=== PATIENT | female | born 1995 | race Caucasian/White ===

== ENCOUNTER 2017-05-13 14:48 | Emergency (ER) | payer OTHER ==
[~2017-05-13] VITALS: Ht 182.9 cm; Wt 77.6 kg
[2017-05-13 15:36] VITALS: TEMP 36.8; Ht 182.9 cm; Wt 77.6 kg
[2017-05-13] MEDS ORDERED: DiphenhydrAMINE HCL 50 MG/ML VIAL IV STA (17:14)
[2017-05-13] MEDS ORDERED: KETOROLAC TROMETHAMINE 30 MG/ML VIAL IV STA (17:14)
[2017-05-13] MEDS ORDERED: PROCHLORPERAZINE 5 MG/ML 2 ML VIAL IV STA (17:14)
[2017-05-13] MEDS ORDERED: SODIUM CHLORIDE 0.9% 1000ML 1,000 ML IV STA (17:14)
--- NOTE | 2017-05-13 17:17 | EMERGENCY ROOM VISIT NOTE ---
History Report prepared by Hussain: Itzel Hess Under the Supervision of: Dr. Manuel Liz M.D. First contact with patient: 17:09 Chief Complaint: HEADACHE Stated Complaint: MIGRAINE, NECK PAIN, LOSS OF SIGHT History of Present Illness The patient is a 21 year old female who presents to the Emergency Room with complaints of a worsening headache that began at 9:30pm last night. The patient states that the headache was an sudden onset. She notes that the pain has migrated down her neck. She states that moving her neck side to side worsens the pain. She is also experiencing black dots in her vision. The patient in June 2016 has a brain bleed and she states that the headache at that time is similar to what she is experiencing now. She was treated at [facility] in [place]. The patient denies abdominal pain. She takes Prednisone for her Lupus. Source of History: patient Onset: 9:30pm last night Position: head Quality: other (headache) Timing: worsening Modifying Factors (Worsening): other (turning head side to side) Associated Symptoms: + neck pain, No abdominal pain Note: The patient is experiencing black dots in her vision. Review of Systems See HPI for pertinent positives & negatives. A total of 10 systems reviewed and were otherwise negative. Past Medical & Surgical Medical Problems: (1) Lupus Family History Patient reports no known family medical history. Social History Smoking Status: Current Every Day Smoker Smokeless Tobacco Use: No Marital Status: Housing Status: lives with family Current/Historical Medications Scheduled Prednisone Tab (Prednisone), 10 MG PO DAILY Allergies Coded Allergies: Sumatriptan (Unverified Allergy, Severe, CAUSED BRAIN BLEED, 05/13/17) Physical Exam Vital Signs Date Time Temp Pulse Resp B/P (MAP) Pulse Ox O2 Delivery O2 Flow Rate FiO2 05/13/17 19:10 47 18 102/66 99 05/13/17 18:29 45 16 104/60 99 Room Air 05/13/17 17:53 64 05/13/17 17:40 48 17 112/63 97 Room Air 05/13/17 15:36 36.8 72 20 118/76 100 Room Air Physical Exam GENERAL: Patient is a healthy-appearing well-nourished female HEAD: Normocephalic atraumatic. No evidence of meningitis or cephalitis on exam. EYES: Ocular movements intact pupils equal and react to light OROPHARYNX mucous membranes are moist no exudates present no erythema or edema present NECK: Supple no nuchal rigidity CHEST: Good equal expansion LUNGS: Clear and equal to auscultation CARDIAC: Normal S1 and S2 ABDOMEN: Soft nontender no guarding BACK: No CVA tenderness EXTREMITIES: No pain upon palpation normal muscle strength in all groups no clubbing cyanosis or edema NEURO: Patient is following commands and answering questions appropriately. Alert and oriented x3 Cranial Nerves 2-12 grossly intact Medical Decision & Procedures ER Provider Diagnostic Interpretation: CT results as stated below per my review and radiologist interpretation: HEAD CTA HISTORY: Headache mental status change TECHNIQUE: Multiaxial CT images of the head were performed both before and after the intravenous administration of contrast to evaluate the major cerebral vessels. Maximum intensity projection images were also obtained. COMPARISON: None. FINDINGS: There is no mass, hematoma, midline shift, or acute infarct. Visualized intracranial internal carotid arteries, distal vertebral arteries, and basilar artery are widely patent. There is no significant stenosis, occlusion, or aneurysm seen within the bilateral ACAs, MCAs, or therapeutic recreation specialist. IMPRESSION: No significant stenosis, occlusion, or aneurysm within the [place]. Negative unenhanced CT scan of the brain Electronically signed by: Jony Aponte M.D. 05/13/2017 6:25 PM Dictated Date/Time: 05/13/2017 6:23 PM Laboratory Results 05/13/17 17:30 Red Blood Count 4.55, Mean Corpuscular Volume 81.1, Mean Corpuscular Hemoglobin 27.7, Mean Corpuscular Hemoglobin Concent 34.1, Mean Platelet Volume 8.8, Neutrophils (%) (Auto) 80.7, Lymphocytes (%) (Auto) 16.1, Monocytes (%) (Auto) 2.6, Eosinophils (%) (Auto) 0.2, Basophils (%) (Auto) 0.2, Neutrophils # (Auto) 4.71, Lymphocytes # (Auto) 0.94, Monocytes # (Auto) 0.15, Eosinophils # (Auto) 0.01, Basophils # (Auto) 0.01 05/13/17 17:30 Test 05/13/17 17:30 05/13/17 17:41 White Blood Count 5.83 K/uL (4.8-10.8) Red Blood Count 4.55 M/uL (4.2-5.4) Hemoglobin 12.6 g/dL (12.0-16.0) Hematocrit 36.9 % (37-47) Mean Corpuscular Volume 81.1 fL (80-100) Mean Corpuscular Hemoglobin 27.7 pg (25-34) Mean Corpuscular Hemoglobin Concent 34.1 g/dl (32-36) Platelet Count 279 K/uL (130-400) Mean Platelet Volume 8.8 fL (7.4-10.4) Neutrophils (%) (Auto) 80.7 % Lymphocytes (%) (Auto) 16.1 % Monocytes (%) (Auto) 2.6 % Eosinophils (%) (Auto) 0.2 % Basophils (%) (Auto) 0.2 % Neutrophils # (Auto) 4.71 K/uL (1.4-6.5) Lymphocytes # (Auto) 0.94 K/uL (1.2-3.4) Monocytes # (Auto) 0.15 K/uL (0.11-0.59) Eosinophils # (Auto) 0.01 K/uL (0-0.5) Basophils # (Auto) 0.01 K/uL (0-0.2) RDW Standard Deviation 43.7 fL (36.4-46.3) RDW Coefficient of Variation 14.7 % (11.5-14.5) Immature Granulocyte % (Auto) 0.2 % Immature Granulocyte # (Auto) 0.01 K/uL (0.00-0.02) Urine Color YELLOW Urine Appearance CLOUDY (CLEAR) Urine pH 7.5 (4.5-7.5) Urine Specific [place] 1.026 (1.000-1.030) Urine Protein NEG (NEG) Urine Glucose (UA) NEG (NEG) Urine Ketones TRACE (NEG) Urine Occult Blood NEG (NEG) Urine Nitrite NEG (NEG) Urine Bilirubin NEG (NEG) Urine Urobilinogen NEG (NEG) Urine Leukocyte Esterase SMALL (NEG) Urine WBC (Auto) >30 /hpf (0-5) Urine RBC (Auto) 0-4 /hpf (0-4) Urine Hyaline Casts (Auto) 10-30 /lpf (0-5) Urine Epithelial Cells (Auto) >30 /lpf (0-5) Urine Bacteria (Auto) 2+ (NEG) Urine Test NEG (NEG) Est Creatinine Clear Calc Drug Dose 165.7 ml/min Estimated GFR () 149.4 Estimated GFR (Non- 128.9 BUN/Creatinine Ratio 17.4 (10-20) Calcium Level 9.0 mg/dl (8.5-10.1) Total Bilirubin 0.2 mg/dl (0.2-1) Direct Bilirubin < 0.1 mg/dl (0-0.2) Aspartate Amino Transf (AST/SGOT) 12 U/L (15-37) Alanine Aminotransferase (ALT/SGPT) 13 U/L (12-78) Alkaline Phosphatase 57 U/L (45-117) Total Protein 8.3 gm/dl (6.4-8.2) Albumin 3.5 gm/dl (3.4-5.0) Lipase 101 U/L (73-393) Bedside Hemoglobin 13.6 g/dl (12.0-16.0) Bedside Hematocrit 40 % (37-47) Bedside Sodium 141 mEq/L (135-144) Bedside Potassium 3.8 mEq/L (3.3-5.0) Bedside Chloride 101 mEq/L (101-112) Bedside Total CO2 26 mEq/l (24-31) Anion Gap 20.0 mmol/L (16-25) Bedside Blood Urea Nitrogen 10 mg/dl (7-18) Bedside Creatinine 0.6 mg/dl (0.6-1.3) Bedside Glucose (other) 104 mg/dl (70-99) Bedside Ionized Calcium (Maximiliano) 1.19 mmol/l (1.12-1.32) Labs reviewed by ED physician. Medications Administered Medications (Trade) Dose Ordered Sig/Mary Route Start Time Stop Time Status Last Admin Dose Admin Sodium Chloride 1,000 ml @ 999 mls/hr Q1H1M STAT IV 05/13/17 17:14 05/13/17 18:14 DC 05/13/17 17:33 999 MLS/HR Ketorolac Tromethamine (Toradol Inj) 30 mg NOW STAT IV 05/13/17 17:14 05/13/17 17:16 DC 05/13/17 17:37 30 MG Diphenhydramine HCl (Benadryl Inj) 50 mg NOW STAT IV 05/13/17 17:14 05/13/17 17:16 DC 05/13/17 17:38 50 MG Prochlorperazine Edisylate (Compazine Inj) 10 mg NOW STAT IV 05/13/17 17:14 05/13/17 17:16 DC 05/13/17 17:39 10 MG Dexamethasone Sodium Phosphate (Decadron Inj) 10 mg NOW STAT IV 05/13/17 18:55 05/13/17 18:56 DC 05/13/17 18:58 10 MG ED Course 1710: Past medical records reviewed. The patient was evaluated in room A10. A complete history and physical examination was performed. 171: Compazine Inj 10 mg IV, Benadryl Inj 50 mg IV, Toradol Inj 30 mg IV, Sodium Chloride 1,000 ml @ 999 mls/hr IV. 1854: Decadron Inj 10 mg IV. 1856: Upon reexamination the patient is hemodynamically stable. I discussed results and treatment plan with the patient. She verbalizes agreement and understanding. The patient is ready for discharge. Medical Decision Differential diagnosis: Etiologies such as migraine headache, meningitis, sinusitis, CO exposure, ICH, SAH, infection, tumor, headache, sinus thrombosis, arterial dissection, as well as others were entertained. Medication Reconciliation: I attest that I have personally reviewed the patient' s current medication list. Blood Pressure Screening: Patient was found to have normal blood pressure on screening and does not require follow up. This is a 21-year-old female who presents emergency department complaining of migraine headache. The patient has a history of migraines in the past. She has no evidence of meningitis encephalitis on examination. The patient also has a history of a brain bleed therefore she was sent for a CTA of her head. This did not show any acute process. In addition the patient has a normal CBC. An IV was established, patient given normal saline saline bolus, Toradol, Compazine, Benadryl, Decadron. Repeat examination revealed much improvement the patient's symptoms. I do believe that the patient can be safely discharged home for follow-up with neurology. Patient was in agreement with the treatment plan. Impression Primary Impression: Headache Scribe Attestation The scribe's documentation has been prepared under my direction and personally reviewed by me in its entirety. I confirm that the note above accurately reflects all work, treatment, procedures, and medical decision making performed by me. Departure Information Dispostion Home / Self-Care Referrals No Doctor, Assigned (PCP) Forms HOME CARE DOCUMENTATION FORM, IMPORTANT VISIT INFORMATION, School Instructions, Work Instructions Patient Instructions Headaches Migraine and Tension, My [facility] Additional Instructions Follow up with DR Capone's office You have been examined and treated today on an emergency basis only. This is not a substitute for, or an effort to provide, complete comprehensive medical care. It is impossible to recognize and treat all injuries or illnesses in a single emergency department visit. It is therefore important that you follow up closely with your PCP. Call as soon as possible for an appointment. Thank you for your time and consideration. I look forward to speaking with you again soon. Please don't hesitate to call us if you have any questions. Problem Qualifiers Primary Impression: Headache Headache type: unspecified Headache chronicity pattern: unspecified pattern Intractability: not intractable Qualified Codes: R51 - Headache
[2017-05-13] MEDS ORDERED: OPTIRAY 320 IV PRN (17:30)
[2017-05-13 17:44] LABS: BASO % 0.2 %; BASO ABS # 0.01 K/uL (0-0.2); COMPLETE YES; EOS % 0.2 %; HEMATOCRIT 36.9 % (37-47); IG% 0.2 %; LYMPH % 16.1 %; LYMPH ABS # 0.94 K/uL (1.2-3.4); MEAN CELL VOLUME 81.1 fL (80-100); MEAN CORPUSCULAR HEMOGLOBIN 27.7 pg (25-34); MEAN CORPUSCULAR HGB CONC 34.1 g/dl (32-36); MEAN PLATELET VOLUME 8.8 fL (7.4-10.4); MONO % 2.6 %; NEUT % 80.7 %; PLATELET COUNT 279 K/uL (130-400); RED BLOOD COUNT 4.55 M/uL (4.2-5.4); WHITE BLOOD COUNT 5.83 K/uL (4.8-10.8)
[2017-05-13 17:53] LABS: ISTAT CREATININE 0.6 mg/dl (0.6-1.3); ISTAT HEMOGLOBIN 13.6 g/dl (12.0-16.0); ISTAT IONIZED CALCIUM 1.19 mmol/l (1.12-1.32)
[2017-05-13 18:06] LABS: URINE APPEARANCE CLOUDY (CLEAR); URINE BILIRUBIN NEG (NEG); URINE COLOR YELLOW; URINE EPITHELIAL CELL AUTO >30 /lpf (0-5); URINE NITRITE NEG (NEG); URINE PH 7.5 (4.5-7.5); URINE SPECIFIC GRAVITY 1.026 (1.000-1.030); UROBILINOGEN NEG (NEG)
[2017-05-13 18:13] LABS: ALT/SGPT 13 U/L (12-78); AST/SGOT 12 U/L (15-37); BLOOD UREA NITROGEN 11 mg/dl (7-18); BUN/CREATININE RATIO 17.4 (10-20); CARBON DIOXIDE 25 mmol/L (21-32); CHLORIDE 105 mmol/L (98-107); CREATININE 0.62 mg/dl (0.60-1.20); GLUCOSE 100 mg/dl (70-99); POTASSIUM 3.8 mmol/L (3.5-5.1); SODIUM 139 mmol/L (136-145)
[2017-05-13 18:14] LABS: MANUAL MICROSCOPIC REQUIRED? NO; REVIEW REQ? NO
[2017-05-13 18:15] LABS: ALKALINE PHOSPHATASE 57 U/L (45-117)
--- NOTE | 2017-05-13 18:26 | DIAGNOSTIC IMAGING REPORT ---
HEAD CTA HISTORY: Headache mental status change TECHNIQUE: Multiaxial CT images of the head were performed both before and after the intravenous administration of contrast to evaluate the major cerebral vessels. Maximum intensity projection images were also obtained. COMPARISON: None. FINDINGS: There is no mass, hematoma, midline shift, or acute infarct. Visualized intracranial internal carotid arteries, distal vertebral arteries, and basilar artery are widely patent. There is no significant stenosis, occlusion, or aneurysm seen within the bilateral ACAs, MCAs, or screen printing press operator. IMPRESSION: No significant stenosis, occlusion, or aneurysm within the [place] of [place]. Negative unenhanced CT scan of the brain Electronically signed by: Jony Aponte M.D. 05/13/2017 6:25 PM Dictated Date/Time: 05/13/2017 6:23 PM
[2017-05-13] MEDS ORDERED: DEXAMETHASONE SOD INJ 10 MG/ML VIAL IV STA (18:55)
[2017-05-13 19:10] VITALS: BP 102/66; PULSE 47; O2SAT 99
== END 2017-05-13 19:10 | disposition home or self-care (01) ==
LOC: C.EDB 14:50 → C.EDA 19:10
DX: R51 Headache (principal); L93.0 Discoid lupus erythematosus; F17.200 Nicotine dependence, unspecified, uncomplicated; Z79.52 Long term (current) use of systemic steroids

== ENCOUNTER 2017-05-25 14:19 | Emergency (ER) | payer OTHER ==
[~2017-05-25] VITALS: Ht 182.9 cm; Wt 76.9 kg
[2017-05-25 14:35] VITALS: TEMP 36.7; Ht 182.9 cm; Wt 76.9 kg
[2017-05-25] MEDS ORDERED: SODIUM CHLORIDE 0.9% 1000ML 1,000 ML IV STA (15:17)
[2017-05-25] MEDS ORDERED: DiphenhydrAMINE HCL 50 MG/ML VIAL IV STA (15:17)
[2017-05-25] MEDS ORDERED: PROCHLORPERAZINE 5 MG/ML 2 ML VIAL IV STA (15:17)
[2017-05-25] MEDS ORDERED: MAGNESIUM SULFATE 1GM / D5W 1 GM BAG IV STA (15:17)
[2017-05-25] MEDS ORDERED: KETOROLAC TROMETHAMINE 30 MG/ML VIAL IV STA (15:17)
--- NOTE | 2017-05-25 15:21 | EMERGENCY ROOM VISIT NOTE ---
History Report prepared by Hussain: Sulaiman Jhaveri Under the Supervision of: Dr. Manuel Liz M.D. First contact with patient: 15:13 Chief Complaint: HEADACHE Stated Complaint: SEVERE MIGRAINE, LOSS OF SIGHT IN LEFT EYE History of Present Illness The patient is a 21 year old female with a history of headaches who presents to the Emergency Room with complaints of persistent headache that started around 0700 this morning. She has also had a loss of vision in her left eye accompanied with the headache. The patient states that everything looks extremely blurry in her left eye, and she cannot see if she closes her right eye. She describes it as if she was "staring at the sun for too long". The patient says that she has had vision difficulties in her left eye before, but she would still be able to see during those episodes. The patient describes those episodes as if she had spots in her vision. She has seen her family doctor for her headaches, and was given Triptan, which has not been helping. The patient has not called a neurologist yet. Source of History: patient Onset: Around 0700 this morning Position: head Quality: other (headache - migraine) Timing: other (persistent) Note: Associated symptoms: Loss of vision in left eye. Review of Systems See HPI for pertinent positives & negatives. A total of 10 systems reviewed and were otherwise negative. Past Medical & Surgical Medical Problems: (1) Lupus Family History Patient reports no known family medical history. Social History Smoking Status: Current Every Day Smoker Marital Status: Housing Status: lives with family Current/Historical Medications Scheduled Acetaminophen (Tylenol), 1,300 MG PO PRN UD Amitriptyline Hcl (Elavil), 10 MG PO HS Prednisone Tab (Prednisone), 10 MG PO TAPER UD Allergies Coded Allergies: Sumatriptan (Unverified Allergy, Severe, CAUSED BRAIN BLEED, 05/13/17) Physical Exam Vital Signs Date Time Temp Pulse Resp B/P (MAP) Pulse Ox O2 Delivery O2 Flow Rate FiO2 05/25/17 16:41 87 20 110/80 99 05/25/17 14:35 36.7 80 20 105/68 94 Room Air Physical Exam GENERAL: Patient is a healthy-appearing well-nourished [] HEAD: Normocephalic atraumatic EYES: Ocular movements intact pupils equal and react to light OROPHARYNX mucous membranes are moist no exudates present no erythema or edema present NECK: Supple no nuchal rigidity CHEST: Good equal expansion LUNGS: Clear and equal to auscultation CARDIAC: Normal S1 and S2 ABDOMEN: Soft nontender no guarding BACK: No CVA tenderness EXTREMITIES: No pain upon palpation normal muscle strength in all groups no clubbing cyanosis or edema NEURO: Patient is following commands and answering questions appropriately. Alert and oriented x3 Cranial Nerves 2-12 grossly intact. No evidence of meningitis or encephalitis on exam. Medical Decision & Procedures Medications Administered Medications (Trade) Dose Ordered Sig/Mary Route Start Time Stop Time Status Last Admin Dose Admin Ketorolac Tromethamine (Toradol Inj) 30 mg NOW STAT IV 05/25/17 15:17 05/25/17 15:19 DC 05/25/17 15:39 30 MG Prochlorperazine Edisylate (Compazine Inj) 10 mg NOW STAT IV 05/25/17 15:17 05/25/17 15:19 DC 05/25/17 15:40 10 MG Diphenhydramine HCl (Benadryl Inj) 50 mg NOW STAT IV 05/25/17 15:17 05/25/17 15:19 DC 05/25/17 15:38 50 MG Sodium Chloride 1,000 ml @ 999 mls/hr Q1H1M STAT IV 05/25/17 15:17 05/25/17 16:17 DC 05/25/17 15:35 999 MLS/HR Dexamethasone Sodium Phosphate (Decadron Inj) 10 mg NOW ONCE IV 05/25/17 15:30 05/25/17 15:31 DC 05/25/17 15:44 10 MG Magnesium Sulfate (Magnesium Sulfate) 1 gm NOW STAT IV 05/25/17 15:17 05/25/17 15:19 DC 05/25/17 15:43 1 GM ED Course 1515: Past medical records reviewed. The patient was evaluated in room A12A. A complete history and physical examination was performed. 1517: Ordered Magnesium Sulfate 1 gm IV, NSS 1000 ml @ 999 mls/hr IV, Benadryl Inj 50 mg IV, Compazine Inj 10 mg IV, Toradol Inj 30 mg IV. 1530: Ordered Decadron Inj 10 mg IV. 1615: Upon reexamination the patient is feeling better. I discussed results and treatment plan with the patient. She verbalizes agreement and understanding. The patient is ready for discharge. Medical Decision Differential diagnosis: Etiologies such as migraine headache, meningitis, sinusitis, CO exposure, ICH, SAH, infection, tumor, headache, sinus thrombosis, arterial dissection, as well as others were entertained. Medication Reconciliation: I attest that I have personally reviewed the patient' s current medication list Blood Pressure Screening: Patient was found to have normal blood pressure on screening and does not require follow up. This is a 21-year-old female who presents emergency department complaining of severe migraine headache. The patient has no evidence of meningitis encephalitis on examination. An IV was established, the patient given normal saline bolus, Toradol, Compazine, Benadryl, magnesium. Repeat examination revealed improvement patient's symptoms. I do believe that the patient as well as to be discharged home for follow-up with her primary care physician. Patient and family were in agreement with the treatment plan. Impression Primary Impression: Headache Scribe Attestation The scribe's documentation has been prepared under my direction and personally reviewed by me in its entirety. I confirm that the note above accurately reflects all work, treatment, procedures, and medical decision making performed by me. Departure Information Dispostion Home / Self-Care Referrals No Doctor, Assigned (PCP) Nona Brody M.D. Forms HOME CARE DOCUMENTATION FORM, IMPORTANT VISIT INFORMATION, School Instructions, Work Instructions Patient Instructions ED Headache Migraine, [facility] Additional Instructions Follow up with DR Brody's office You have been examined and treated today on an emergency basis only. This is not a substitute for, or an effort to provide, complete comprehensive medical care. It is impossible to recognize and treat all injuries or illnesses in a single emergency department visit. It is therefore important that you follow up closely with your PCP. Call as soon as possible for an appointment. Thank you for your time and consideration. I look forward to speaking with you again soon. Please don't hesitate to call us if you have any questions. Problem Qualifiers Primary Impression: Headache Headache type: unspecified Headache chronicity pattern: unspecified pattern Intractability: not intractable Qualified Codes: R51 - Headache
[2017-05-25] MEDS ORDERED: DEXAMETHASONE SOD INJ 10 MG/ML VIAL IV ONE (15:30)
[2017-05-25] MEDS ORDERED: ACET-1175 PO (15:32)
[2017-05-25] MEDS ORDERED: AMIT10TA6 PO (15:32)
[2017-05-25 16:41] VITALS: BP 110/80; PULSE 87; O2SAT 99
[2017-05-25] MEDS ORDERED: PRED10TA PO (17:23)
== END 2017-05-25 16:42 | disposition home or self-care (01) ==
LOC: C.EDB 14:20 → C.EDA 16:42
DX: R51 Headache (principal); M32.9 Systemic lupus erythematosus, unspecified; F17.210 Nicotine dependence, cigarettes, uncomplicated

== ENCOUNTER 2017-06-12 14:06 | Emergency (ER) | payer OTHER ==
[~2017-06-12] VITALS: Ht 182.9 cm; Wt 78.7 kg
[~2017-06-12 14:06] MED LIST: ACET-1175 PO; AMIT10TA6 PO; PRED10TA PO
[2017-06-12 14:14] VITALS: TEMP 36.9; Ht 182.9 cm; Wt 78.7 kg
[2017-06-12] MEDS ORDERED: DiphenhydrAMINE HCL 50 MG/ML VIAL IV STA (14:36)
[2017-06-12] MEDS ORDERED: SODIUM CHLORIDE 0.9% 1000ML 1,000 ML IV STA (14:36)
[2017-06-12] MEDS ORDERED: PROCHLORPERAZINE 5 MG/ML 2 ML VIAL IV STA (14:36)
[2017-06-12] MEDS ORDERED: DEXAMETHASONE SOD INJ 4 MG/ML VIAL IV STA (14:36)
--- NOTE | 2017-06-12 15:13 | DIAGNOSTIC IMAGING REPORT ---
CHEST ONE VIEW PORTABLE CLINICAL HISTORY: Atypical chest pain and shortness of breath COMPARISON STUDY: No previous studies for comparison. FINDINGS: The cardiac and mediastinal contours are normal. There is no evidence of focal pulmonary consolidation. There is no evidence of failure. No pleural effusions are visualized.[ Line shadows projecting over both lung apices are likely extraneous to the patient. No pneumothorax is visualized. IMPRESSION: No active disease in the chest. Electronically signed by: Daniel Pate M.D. 06/12/2017 3:11 PM Dictated Date/Time: 06/12/2017 3:10 PM
[2017-06-12 15:32] LABS: BASO % 0.3 %; BASO ABS # 0.01 K/uL (0-0.2); COMPLETE YES; EOS % 0.8 %; HEMATOCRIT 40.1 % (37-47); LYMPH % 41.9 %; LYMPH ABS # 1.55 K/uL (1.2-3.4); MEAN CELL VOLUME 82.9 fL (80-100); MEAN CORPUSCULAR HEMOGLOBIN 28.1 pg (25-34); MEAN CORPUSCULAR HGB CONC 33.9 g/dl (32-36); MONO % 7.3 %; NEUT % 49.7 %; PLATELET COUNT 312 K/uL (130-400); RED BLOOD COUNT 4.84 M/uL (4.2-5.4)
[2017-06-12 15:50] LABS: BLOOD UREA NITROGEN 11 mg/dl (7-18); BUN/CREATININE RATIO 15.4 (10-20); CALCIUM 9.1 mg/dl (8.5-10.1); CARBON DIOXIDE 31 mmol/L (21-32); CHLORIDE 102 mmol/L (98-107); CREATININE 0.72 mg/dl (0.60-1.20); GLUCOSE 88 mg/dl (70-99); POTASSIUM 3.7 mmol/L (3.5-5.1); SODIUM 138 mmol/L (136-145)
[2017-06-12 15:51] LABS: PREG INTERNAL NEGATIVE QC NEG CLEAR BACKGROUND; PREG INTERNAL POSITIVE QC POS CONTROL LINE
[2017-06-12] MEDS ORDERED: PROM25TA9 PO (15:56)
[2017-06-12] MEDS ORDERED: OPTIRAY 320 IV PRN (16:30)
--- NOTE | 2017-06-12 16:51 | EMERGENCY ROOM VISIT NOTE ---
History First contact with patient: 14:19 Chief Complaint: PAIN (GENERALIZED) Stated Complaint: SEVERE HEAD AND CHEST PAIN History of Present Illness The patient is a 21 year old female who presents to the Emergency Room with complaints of a headache and chest pain. The patient states that she has had a migraine for the past 5 days. She states it has been progressively worsening. The patient does have a history of migraines and states this feels similar to previous. The patient also reports that she has a history of a brain bleed a few years ago. She states this was due to taking Imitrex. She reports that her primary care provider recently switched her migraine medications. She has been calling a neurologist but has not been able to set up follow-up appointment. Tylenol last night without relief. She is taking promethazine without relief. Patient also reports that she develops chest pain and shortness of breath yesterday. She states the shortness of breath is with exertion. The chest pain is located in the center of the chest and is a dull pain. She rates her overall discomfort 8/10. She denies any vomiting. She is nauseous. She denies numbness, weakness, blurred vision, slurred speech, recent illness, neck pain/stiffness or fever. Review of Systems A complete 10 point review of systems was reviewed with the patient with pertinent positives and negatives as per history of present illness. All else were negative. Past Medical/Surgical History Medical Problems: (1) Lupus Family History Patient reports no known family medical history. Social History Smoking Status: Current Every Day Smoker Marital Status: Housing Status: lives with family Current/Historical Medications Scheduled Acetaminophen (Tylenol), 1,300 MG PO PRN UD Amitriptyline Hcl (Elavil), 10 MG PO HS Scheduled PRN Promethazine Hcl (Phenergan), 25 MG PO DAILY PRN for Nausea Physical Exam Vital Signs Date Time Temp Pulse Resp B/P (MAP) Pulse Ox O2 Delivery O2 Flow Rate FiO2 06/12/17 17:10 68 16 127/72 99 Room Air 06/12/17 15:54 72 16 134/76 99 Room Air 06/12/17 14:14 36.9 90 18 121/76 99 Room Air Physical Exam VITALS: Vitals are noted on the nurse's note and reviewed by myself. Vital signs stable. GENERAL: This is a 21-year-old female, in no acute distress, nondiaphoretic, well-developed well-nourished. SKIN: The skin was without rashes, erythema, edema, or bruising. HEAD: Normocephalic atraumatic. EARS: External auditory canals clear, tympanic membranes pearly traore without erythema or effusion bilaterally. EYES: Pupils equal round and reactive to light and accommodation. Conjunctivae without injection, sclerae without icterus. Extraocular movements intact. MOUTH: Mucous membranes moist. Tonsils are not enlarged. Pharynx without erythema or exudate. NECK: Supple without nuchal rigidity. No lymphadenopathy. HEART: Regular rate and rhythm without murmurs gallops or rubs. LUNGS: Clear to auscultation bilaterally without wheezes, rales or rhonchi. ABDOMEN: Positive bowel sounds x 4. Soft, nontender to palpation. MUSCULOSKELETAL: Full range of motion throughout. Strength 5/5 throughout. NEURO: Patient was alert and oriented to person place and time. Normal sensation to light and sharp touch. No focal neurological deficits. Medical Decision & Procedures ER Provider Diagnostic Interpretation: CHEST ONE VIEW PORTABLE FINDINGS: The cardiac and mediastinal contours are normal. There is no evidence of focal pulmonary consolidation. There is no evidence of failure. No pleural effusions are visualized.[ Line shadows projecting over both lung apices are likely extraneous to the patient. No pneumothorax is visualized. IMPRESSION: No active disease in the chest. CT ANGIOGRAM OF THE CHEST FINDINGS: There is bilateral axillary lymphadenopathy, left greater than right. There are no pathologically enlarged mediastinal or hilar lymph nodes. Anterior mediastinal soft tissue likely represents residual thymus. There was no evidence of thoracic aortic dilatation. There were no pulmonary artery filling defects to indicate acute pulmonary embolism. There are trace pleural effusions There are mild dependent atelectatic changes. There is no lobar consolidation IMPRESSION: 1. No evidence of pulmonary embolism 2. Unexplained axillary lymphadenopathy left greater than right. Further workup is advocated 3. Trace pleural effusions. Mild bibasilar atelectasis. Laboratory Results 06/12/17 15:15 Red Blood Count 4.84, Mean Corpuscular Volume 82.9, Mean Corpuscular Hemoglobin 28.1, Mean Corpuscular Hemoglobin Concent 33.9, Mean Platelet Volume 9.0, Neutrophils (%) (Auto) 49.7, Lymphocytes (%) (Auto) 41.9, Monocytes (%) (Auto) 7.3, Eosinophils (%) (Auto) 0.8, Basophils (%) (Auto) 0.3, Neutrophils # (Auto) 1.84, Lymphocytes # (Auto) 1.55, Monocytes # (Auto) 0.27, Eosinophils # (Auto) 0.03, Basophils # (Auto) 0.01 06/12/17 15:15 Test 06/12/17 15:15 06/12/17 16:00 White Blood Count 3.70 K/uL (4.8-10.8) Red Blood Count 4.84 M/uL (4.2-5.4) Hemoglobin 13.6 g/dL (12.0-16.0) Hematocrit 40.1 % (37-47) Mean Corpuscular Volume 82.9 fL (80-100) Mean Corpuscular Hemoglobin 28.1 pg (25-34) Mean Corpuscular Hemoglobin Concent 33.9 g/dl (32-36) Platelet Count 312 K/uL (130-400) Mean Platelet Volume 9.0 fL (7.4-10.4) Neutrophils (%) (Auto) 49.7 % Lymphocytes (%) (Auto) 41.9 % Monocytes (%) (Auto) 7.3 % Eosinophils (%) (Auto) 0.8 % Basophils (%) (Auto) 0.3 % Neutrophils # (Auto) 1.84 K/uL (1.4-6.5) Lymphocytes # (Auto) 1.55 K/uL (1.2-3.4) Monocytes # (Auto) 0.27 K/uL (0.11-0.59) Eosinophils # (Auto) 0.03 K/uL (0-0.5) Basophils # (Auto) 0.01 K/uL (0-0.2) RDW Standard Deviation 46.7 fL (36.4-46.3) RDW Coefficient of Variation 15.4 % (11.5-14.5) Immature Granulocyte % (Auto) 0.0 % Immature Granulocyte # (Auto) 0.00 K/uL (0.00-0.02) Anion Gap 5.0 mmol/L (3-11) Est Creatinine Clear Calc Drug Dose 142.7 ml/min Estimated GFR () 138.7 Estimated GFR (Non- 119.7 BUN/Creatinine Ratio 15.4 (10-20) Calcium Level 9.1 mg/dl (8.5-10.1) Troponin I < 0.015 ng/ml (0-0.045) Human Chorionic Gonadotropin, Qual NEG (NEG) Bedside D-Dimer > 450 ng/mlFEU (0-450) Medications Administered Medications (Trade) Dose Ordered Sig/Mary Route Start Time Stop Time Status Last Admin Dose Admin Sodium Chloride 1,000 ml @ 999 mls/hr Q1H1M STAT IV 06/12/17 14:36 06/12/17 15:36 DC 06/12/17 15:11 999 MLS/HR Diphenhydramine HCl (Benadryl Inj) 25 mg NOW STAT IV 06/12/17 14:36 06/12/17 14:38 DC 06/12/17 15:11 25 MG Prochlorperazine Edisylate (Compazine Inj) 10 mg NOW STAT IV 06/12/17 14:36 06/12/17 14:38 DC 06/12/17 15:11 10 MG Dexamethasone Sodium Phosphate (Decadron Inj) 10 mg NOW STAT IV 06/12/17 14:36 06/12/17 14:38 DC 06/12/17 15:11 10 MG ECG Indication: chest pain Rate (beats per minute): 89 Rhythm: normal sinus Findings: T-wave inversion (Anterolateral), no ectopy Comparison ECG Date: no prior available ED Course The patient was evaluated as above. Labs were drawn and IV access was obtained. Patient was medicated with IV Benadryl, Compazine and Decadron . Patient was found to have an elevated d-dimer. CT angiogram was performed and read by radiology as above. Patient was reevaluated and felt much better. She requested discharge home. Discharge instructions were reviewed with the patient. The patient verbalized understanding of my assessment and treatment plan and was discharged home in good condition. Medical Decision Differential diagnosis includes acute coronary syndrome, pulmonary embolism, pneumothorax, pericarditis, myocarditis, endocarditis, anxiety, musculoskeletal pain, GERD, costochondritis, pneumonia, migraine headache, intracranial hemorrhage, among others. The patient is a 21-year-old female who presents today complaining of chest pain and a migraine headache. Patient states that her headache is similar to previous migraines. She reports it is not similar to when she had the bleed in the brain. Patient has had a recent CT/CT angiogram of the head and I do not feel repeat imaging is necessary today. Labs revealed no leukocytosis, anemia or concerning electrolyte abnormalities. Troponin was not elevated. D-dimer was elevated and CT angiogram of the chest was performed and showed no evidence of PE. CT did show unexplained left-sided axillary lymphadenopathy. Patient also has a mild leukopenia. She will need to follow-up with her primary care provider regarding these findings. EKG did show some T-wave inversions, however with negative troponin and greater than 8 hours of symptoms, I do not feel this represents ischemia. Patient was again encouraged to follow-up with neurology regarding her frequent migraine headaches. Based on the patient's presentation and work up, I feel the patient is stable for outpatient treatment. The patient was educated to return to the emergency department for any worsening of their current condition or new/concerning symptoms. She will follow up with her PCP. Medication Reconcilliation Current Medication List: was personally reviewed by me Blood Pressure Screening Patient's blood pressure: Normal blood pressure Impression Primary Impression: Headache Additional Impression: Central chest pain Departure Information Dispostion Home / Self-Care Condition GOOD Referrals No Doctor, Assigned (PCP) Patient Instructions My [facility] [employer] Additional Instructions You were given medications today which will make you drowsy. You should not drive or operate heavy machinery after taking these medications. For pain control, you can use the following [id number] medicines (if >12 yo): - Regular strength (325mg/tab) Tylenol (acetaminophen) 2 tabs every 4-6 hours as needed. Do not exceed 12 tablets in a 24 hour period. Avoid taking more than 4 grams (4000 mg) of Tylenol per day. This includes any other sources of acetaminophen you may take on a regular basis. Follow-up with your primary care provider and neurology for further evaluation and treatment. Return to the emergency department with any worsening or new/concerning symptoms. Problem Qualifiers
--- NOTE | 2017-06-12 16:51 | DIAGNOSTIC IMAGING REPORT ---
CT ANGIOGRAM OF THE CHEST CLINICAL HISTORY: Atypical chest pain and shortness of breath COMPARISON STUDY: Chest x-ray dated 06/12/2017 TECHNIQUE: Following the IV administration of 68 mL of [id number]-320, CT angiogram of the thorax was performed from the thoracic inlet to the lung bases utilizing the pulmonary embolus protocol. Images are reviewed in the axial, sagittal, and coronal planes. IV contrast was administered without complication. MIP imaging was performed. A dose lowering technique was utilized adhering to the principles of ALARA. CT DOSE: 551.95 mGy.cm FINDINGS: There is bilateral axillary lymphadenopathy, left greater than right. There are no pathologically enlarged mediastinal or hilar lymph nodes. Anterior mediastinal soft tissue likely represents residual thymus. There was no evidence of thoracic aortic dilatation. There were no pulmonary artery filling defects to indicate acute pulmonary embolism. There are trace pleural effusions There are mild dependent atelectatic changes. There is no lobar consolidation IMPRESSION: 1. No evidence of pulmonary embolism 2. Unexplained axillary lymphadenopathy left greater than right. Further workup is advocated 3. Trace pleural effusions. Mild bibasilar atelectasis. Electronically signed by: Daniel Pate M.D. 06/12/2017 4:50 PM Dictated Date/Time: 06/12/2017 4:44 PM
[2017-06-12 17:10] VITALS: BP 127/72; PULSE 68; O2SAT 99
== END 2017-06-12 17:10 | disposition home or self-care (01) ==
LOC: C.EDB 14:07 → C.EDC 17:10
DX: G43.909 Migraine, unspecified, not intractable, without status migrainosus (principal); R07.9 Chest pain, unspecified; Z86.79 Personal history of other diseases of the circulatory system; L93.0 Discoid lupus erythematosus; F17.200 Nicotine dependence, unspecified, uncomplicated; R59.0 Localized enlarged lymph nodes